=== PATIENT | male | born 1975 | race Caucasian/White ===

== ENCOUNTER → 2017-03-29 | Outpatient (CLI) | payer MEDICARE ==
[~2017-03-29] MED LIST: AMIT50TA PO; AMITR PO; CARI350T PO; DIPH25CA61 PO; GABA300C10 PO; GABAPEN PO; METH750T87 PO; METO25TA35 PO; OXYC-229 PO; SOMA PO; SULF1TAB24 PO; VENL75TA PO
== END | disposition home or self-care (01) ==
LOC: STAR 13:01
PROVIDERS: ATTEND Thoracic Surgery (Cardiothoracic Vascular Surgery)
DX: Z01.818 Encounter for other preprocedural examination (principal); R94.31 Abnormal electrocardiogram [ECG] [EKG]; K43.2 Incisional hernia without obstruction or gangrene
CPT/HCPCS: 93005

== ENCOUNTER 2017-04-03 05:37 | Inpatient (IN) | payer MEDICARE ==
[~2017-04-03] VITALS: Ht 175.3 cm; Wt 93.8 kg
[2017-04-03 06:21] VITALS: BP 136/91
[2017-04-03] MEDS ORDERED: LIDOCAINE 1%, 2ML ONE (06:32)
[2017-04-03] MEDS ORDERED: BUPIVACAINE/PF-EPI 0.5% 1:200K ONE (06:45)
[2017-04-03] MEDS ORDERED: MIDAZOLAM 1 MG/ML, 2ML ONE (06:53)
[2017-04-03] MEDS ORDERED: FENTANYL PF 250 MCG/5ML ONE (06:54)
[2017-04-03] MEDS ORDERED: hydrALAzine 20 MG/ML, 1ML IV PRN ×2 (07:30→09:30)
[2017-04-03] MEDS ORDERED: METOCLOPRAMIDE 5 MG/ML, 2ML IV PRN (07:30)
[2017-04-03] MEDS ORDERED: ONDANSETRON 2MG/ML, 2ML IVPush PRN ×2 (07:30→09:30)
[2017-04-03] MEDS ORDERED: OXYcodone 5 MG/5 ML ORAL.SOL UDC PO PRN (07:30)
[2017-04-03] MEDS ORDERED: ACETAMINOPHEN 325 MG TABLET PO PRN (07:30)
[2017-04-03] MEDS ORDERED: LABETALOL 5MG/ML, 20ML IV PRN (07:30)
[2017-04-03] MEDS ORDERED: LACTATED RINGERS 1,000 ML IV SCH (08:03)
[2017-04-03] MEDS ORDERED: LIDOCAINE 1%, 2ML SQ PRN (08:30)
[2017-04-03] MEDS ORDERED: HYDROmorphone 2 MG/ML, 1ML ONE ×2 (09:04→09:18)
[2017-04-03] MEDS ORDERED: FENTANYL PF 100 MCG/2ML ONE (09:04)
[2017-04-03] MEDS ORDERED: ACETAMINOPHEN 650 MG/20.3 ML UDC ONE (09:04)
[2017-04-03] MEDS: LACTATED RINGERS 1,000 ML IV SCH ×3 (09:04→17:46)
[2017-04-03] MEDS ORDERED: OXYcodone 5 MG/5 ML ORAL.SOL UDC ONE (09:04)
[2017-04-03] MEDS ORDERED: ACETAMINOPHEN 325 MG TABLET ONE (09:04)
[2017-04-03] MEDS: HYDROmorphone 1 MG/ML, 1ML IV PRN ×4 (09:05→09:31)
[2017-04-03] MEDS ORDERED: HYDROmorphone PCA 30 MG/30 ML ONE (09:19)
[2017-04-03] MEDS: FENTANYL PF 100 MCG/2ML IV PRN ×2 (09:20→09:31)
[2017-04-03] MEDS ORDERED: PROMETHAZINE 25 MG/ML, 1ML IM PRN (09:30)
[2017-04-03] MEDS ORDERED: ACETAMINOPHEN 650 MG SUPP PR PRN (09:30)
[2017-04-03] MEDS ORDERED: DIPHENHYDRAMINE 25 MG CAPSULE PO PRN (09:30)
[2017-04-03] MEDS ORDERED: LORazepam 2 MG/ML, 1ML IV PRN (09:30)
[2017-04-03] MEDS ORDERED: ENALAPRILAT 1.25 MG/ML, 2ML IV PRN (09:30)
[2017-04-03] MEDS ORDERED: PROMETHAZINE 12.5 MG SUPP PR PRN (09:30)
[2017-04-03] MEDS ORDERED: LORazepam 1MG TABLET PO PRN (09:30)
[2017-04-03] MEDS ORDERED: DIPHENHYDRAMINE 50 MG/ML, 1ML IV PRN (09:30)
[2017-04-03] MEDS ORDERED: ACETAMINOPHEN 650 MG/20.3 ML UDC PO PRN (09:30)
[2017-04-03] MEDS ORDERED: HYDROmorphone PCA 30 MG/30 ML IV PRN (09:30)
[2017-04-03] MEDS ORDERED: OXYcodone/APAP 10/325MG TABLET PO PRN (09:30)
[2017-04-03] MEDS: METOPROLOL TARTRATE 25 MG TABLET PO SCH (09:30)
[2017-04-03] MEDS ORDERED: KETOROLAC 30 MG/1 ML ONE (09:33)
[2017-04-03] MEDS: KETOROLAC 30 MG/1 ML IV PRN ×3 (09:38→18:24)
[2017-04-03] MEDS ORDERED: CEFAZOLIN 1,000 MG ONE (10:58)
[2017-04-03] MEDS ORDERED: DEXAMETHASONE 4 MG/ML, 1ML ONE (10:58)
[2017-04-03] MEDS ORDERED: PROPOFOL 10 MG/ML, 20ML ONE (10:58)
[2017-04-03] MEDS ORDERED: ONDANSETRON 2MG/ML, 2ML ONE (10:58)
[2017-04-03] MEDS ORDERED: ROCURONIUM 10 MG/ML ONE (10:58)
[2017-04-03] MEDS ORDERED: SUCCINYLCHOLINE 20 MG/ML, 10ML ONE (10:58)
[2017-04-03] MEDS: GABAPENTIN 300 MG CAPSULE PO SCH ×3 (11:47→20:45)
[2017-04-03 13:11] VITALS: BP 121/75
[2017-04-03] MEDS: CEFAZOLIN PMX 2GM/50ML 50 ML IVPB SCH (17:19)
[2017-04-03 19:48] VITALS: BP 120/79
[2017-04-03] MEDS: VENLAFAXINE 75MG TABLET PO SCH (20:46)
[2017-04-03] MEDS: FAMOTIDINE 20 MG/2 ML IV SCH (20:46)
[2017-04-03] MEDS ORDERED: AMITRIPTYLINE 50 MG TABLET PO SCH (21:00)
[2017-04-03 23:26] VITALS: BP 129/86
[2017-04-04] MEDS: KETOROLAC 30 MG/1 ML IV PRN (00:27)
[2017-04-04] MEDS: CEFAZOLIN PMX 2GM/50ML 50 ML IVPB SCH (00:27)
[2017-04-04] MEDS: LACTATED RINGERS 1,000 ML IV SCH (03:05)
[2017-04-04 03:59] VITALS: BP 116/82
[2017-04-04] MEDS: GABAPENTIN 300 MG CAPSULE PO SCH (06:00)
[2017-04-04] MEDS ORDERED: ENOXAPARIN 40 MG/0.4 ML SQ SCH ×2 (08:00→09:00)
[2017-04-04 09:16] VITALS: BP 119/77
[2017-04-04] MEDS: FAMOTIDINE 20 MG/2 ML IV SCH (10:11)
[2017-04-04] MEDS: METOPROLOL TARTRATE 25 MG TABLET PO SCH (10:12)
[2017-04-04] MEDS: VENLAFAXINE 75MG TABLET PO SCH (10:12)
[2017-04-04] MEDS ORDERED: HYDROmorphone PCA 30 MG/30 ML IV PRN (12:00)
[2017-04-04] MEDS ORDERED: HYDROmorphone 2MG TABLET PO PRN (13:30)
[2017-04-04] MEDS ORDERED: HYDROmorphone 2 MG/ML, 1ML IVPush PRN (13:30)
[2017-04-04] MEDS ORDERED: HYDR2TAB29 PO (15:08)
== END 2017-04-04 15:25 | disposition home or self-care (01) | DRG 355 ==
LOC: OUT 05:37 → ORIP 09:04 → 4NOR 10:27 → DCLOUNGE 04-04 14:44
PROVIDERS: ADMIT Thoracic Surgery (Cardiothoracic Vascular Surgery); ATTEND Thoracic Surgery (Cardiothoracic Vascular Surgery)
PROC: 0WUF0JZ Supplement Abdominal Wall with Synthetic Substitute, Open Approach (ICD-10-PCS; principal; 2017-04-03 07:30)
DX: K43.2 Incisional hernia without obstruction or gangrene (principal); G89.29 Other chronic pain; I10 Essential (primary) hypertension; G47.33 Obstructive sleep apnea (adult) (pediatric); Z90.49 Acquired absence of other specified parts of digestive tract; Z86.73 Personal history of transient ischemic attack (TIA), and cerebral infarction without residual deficits; Z82.49 Family history of ischemic heart disease and other diseases of the circulatory system; Z88.0 Allergy status to penicillin
CPT/HCPCS: J0690; J1100; J1170; J1650; J1885; J2250; J2405; J2704; J3010; J3490; C1781; J0330; J7120; S0028

== ENCOUNTER → 2017-10-25 | Outpatient (CLI) | payer MEDICARE ==
[~2017-10-25] MED LIST changes: +HYDR2TAB29 PO; -OXYC-229 PO; +OXYC-307 PO
== END | disposition home or self-care (01) ==
LOC: CFH 13:28
PROVIDERS: ATTEND Physician Assistant
DX: S62.634A Displaced fracture of distal phalanx of right ring finger, initial encounter for closed fracture (principal); S63.054A Dislocation of other carpometacarpal joint of right hand, initial encounter; S62.144A Nondisplaced fracture of body of hamate [unciform] bone, right wrist, initial encounter for closed fracture; X58.XXXA Exposure to other specified factors, initial encounter; Y93.89 Activity, other specified; Y92.89 Other specified places as the place of occurrence of the external cause; Y99.8 Other external cause status